=== PATIENT | female | born 1985 | race African-American/Black ===

== ENCOUNTER 2024-11-06 13:54 | Emergency (ER) | payer MEDICAID, OTHER ==
[~2024-11-06] VITALS: Ht 149.9 cm; Wt 57.6 kg
--- NOTE | 2024-11-06 14:19 | ED.PDOC ---
HPI (NEURO) HPI Comments 39 y.o female with PMHx of seizures, lupus and anemia, presents to the ED for an evaluation of seizure activity associated with dizziness x today. Patient reports sister at home witnessed 2 tonic clonic seizures lasting 2-3 minutes with another one en route to the ED. Patient reports being placed on Keppra 500mg BID 7 months ago but is unable to keep medication down due to vomiting. Patient was seen at this ED one week ago for seizures and discharged. Patient also mentions developing a rash across her chest due to lupus flare up that is spreading and presents with pain. Patient denies any SOB, diarrhea, fever, chills. She denies any substance, alcohol or tobacco use. Time Seen by MD: 14:05 Reviewed Notes: Nurses Notes, Medications, Allergies Information Source: Patient Mode of Arrival: Ambulatory Timing: Weeks (1) Duration: Since onset Seizure Location: Generalized Onset: At rest Circumstances: Spontaneous Symptoms: None Before: Normal During: LOC After: Normal Mentation History of: Seizure Disorder Modifying factors: Nothing Associated Signs and Symptoms: Other Past Medical History PAST MEDICAL HISTORY: Anemia, Seizures Past Medical History (Other): lupus Constitutional: denies: chills, diaphoresis, fatigue, fever, malaise, sweats, weakness, others EENTM: denies: blurred vision, double vision, ear bleeding, ear discharge, ear drainage, ear pain, ear ringing, eye pain, eye redness, hearing loss, mouth pain , mouth swelling, nasal discharge, nose bleeding, nose congestion, nose pain, photophobia, tearing, throat pain, throat swelling, voice changes, others Respiratory: denies: cough, hemoptysis, orthopnea, SOB at rest, shortness of breath, SOB with excertion, stridor, wheezing, others Cardiovascular: denies: chest pain, dizzy spells, diaphoresis, Dyspnea on exertion, edema, irregular heart beat, left arm pain, lightheadedness, palpitations, PND, syncope, others Gastrointestinal: denies: abdomen distended, abdominal pain, blood streaked bowels, constipated, diarrhea, dysphagia, difficulty swallowing, hematemesis, melena, nausea, poor appetite, poor fluid intake, rectal bleeding, rectal pain, vomiting, others Genitourinary: denies: abnormal vagina bleeding, burning, dyspareunia, dysuria, flank pain, frequency, hematuria, incontinence, pain, , vagina discharge, urgency, others Neurological: reports: dizziness, seizure (3); denies: fainting, headache, left sided numbness, left sided weakness, numbness, paresthesia, pre-existing deficit, right sided numbness, right sided weakness, speech problems, tingling, tremors, weakness, others Musculoskeletal: denies: back pain, gout, joint pain, joint swelling, muscle pain, muscle stiffness, neck pain, others Integumetry: reports: rash; denies: bruises, change in color, change in hair/nails, dryness, laceration, lesions, lumps, wounds, others Allergic/Immunocompromised: denies: Difficulty Healing, Frequent Infections, Hives, Itching, others Hematologic/Lymphatic: denies: anemia, blood clots, easy bleeding, easy bruising, swollen glands, others Endocrine: denies: excessive hunger, excessive sweating, excessive thirst, excessive urination, flushing, intolerance to cold, intolerance to heat, unexpl ained weight gain, unexplained weight loss, others Psychiatric: denies: anxiety, bipolar disorder, depression, hopeless, panic disorder, schizophrenia, sleepless, suicidal, others All Other Systems: Reviewed and Negative Physical Exam General Appearance: Moderate Distress HEENT: Normal ENT Inspection, Pharynx Normal, TMs Normal Neck: Full Range of Motion, Non-Tender, Normal, Normal Inspection Respiratory: Chest Non-Tender, Lungs Clear, No Accessory Muscle Use, No Respiratory Distress, Normal Breath Sounds Cardiovascular: No Edema, No JVD, No Murmur, No Gallop, Normal Peripheral Pulses, Regular Rate/Rhythm Breast Exam: Deferred Gastrointestinal: No Organomegaly, Non Tender, No Pulsatile Mass, Normal Bowel Sounds, Soft Genitalia: Deferred Pelvic: Deferred Rectal: Deferred Extremities: No calf tenderness, Normal capillary refill, No pedal edema Musculoskeletal : Apperance: Normal Neurologic: Alert, lance crewmember II-XII nml as Tested, No Motor Deficits, Normal Affect, Normal Mood, No Sensory Deficits Cerebellar Function: Normal Reflexes: Normal Skin: Dry, Normal Color, Warm Lymphatic: No Adenopathy Was a procedure done? Was a procedure done?: No Differential Diagnosis (SZ) Seizure: Psychogenic Seizure, Closed Head Injury, CVA/TIA, Hyponatremia, Syncope, Encephalopathy, Epilepsy-Break Through, Epilepsy-Status General Weakness: Dehydration, Dysrhythmia, Electrolyte imbalance, Labyrinthit is, Meniere's disease, Myasthenia gravis, TIA, VBI, Vertigo: central, Vertigo: peripheral, Vestibular neuronitis Headache: Cluster, Migraine, Subarachnoid Hemorrhage X-Ray, Labs, Meds, VS Vital Signs Date Time Temp Pulse Resp B/P (MAP) Pulse Ox O2 Delivery O2 Flow Rate FiO2 11/06/24 17:28 75 18 110/89 11/06/24 17:24 98.7 86 20 122/77 (92) 99 98.7 11/06/24 17:24 86 20 99 Room Air 11/06/24 16:35 98.7 98 16 147/98 (114) 100 98.7 11/06/24 14:58 90 18 140/85 11/06/24 14:28 90 18 140/85 11/06/24 14:20 99 18 98 Room Air* 0 21 11/06/24 14:00 98.6 99 16 143/97 (112) 98 98.6 11/06/24 14:00 98.6 99 16 143/97 (112) 98 98.6 Lab Test 11/06/24 15:57 Range/Units White Blood Count 8.4 4.4-10.8 10^3/uL Red Blood Count 4.61 4.0-5.20 10^6/uL Hemoglobin 9.3 L 12.2-16.2 g/dL Hematocrit 31.4 L 36.0-46.0 % Mean Corpuscular Volume 68.1 L 80.0-100.0 fL Mean Corpuscular Hemoglobin 20.2 L 28.0-32.0 pg Mean Corpuscular Hemoglobin Concent 29.7 L 32.0-36.0 g/dL Red Cell Distribution Width 20.4 H 11.8-14.3 % Platelet Count 217 140-450 10^3/uL Mean Platelet Volume 8.7 6.9-10.8 fL Neutrophils (%) (Auto) 75.0 37.0-80.0 % Lymphocytes (%) (Auto) 18.0 10.0-50.0 % Monocytes (%) (Auto) 6.1 0.0-12.0 % Eosinophils (%) (Auto) 0.3 0.0-7.0 % Basophils (%) (Auto) 0.6 0.0-2.0 % Neutrophils # (Auto) 6.3 1.6-8.6 10 ^3/uL Lymphocytes # (Auto) 1.5 0.4-5.4 10 ^3/uL Monocytes # (Auto) 0.5 0-1.3 10 ^3/uL Eosinophils # (Auto) 0 0-0.8 10 ^3/uL Basophils # (Auto) 0.1 0-0.2 10 ^3/uL Nucleated Red Blood Cells 0.1 % Platelet Estimate Adequate Hypochromasia (manual) Marked Anisocytosis (manual) Slight Microcytosis Marked Sodium Level 141 136-145 mmol/L Potassium Level 3.9 3.5-5.1 mmol/L Chloride Level 107 98-107 mmol/L Carbon Dioxide Level 25 20-31 mmol/L Anion Gap 9 5-15 Blood Urea Nitrogen 11 9-23 mg/dL Creatinine 0.79 0.550-1.02 mg/dL Glomerular Filtration Rate Calc 98 >90 mL/min BUN/Creatinine Ratio 13.9 10.0-20.0 Serum Glucose 208 H 74-106 mg/dL Calcium Level 9.6 8.7-10.4 mg/dL Current Medications Medications (Trade) Dose Ordered Sig/Lindsey Route Start Time Stop Time Status Last Admin Sodium Chloride 500 ml @ 500 mls/hr Q1H ONCE IV 11/06/24 14:30 11/06/24 15:29 DC 11/06/24 14:28 Levetiracetam 100 ml @ 400 mls/hr ONCE ONCE IV 11/06/24 14:30 11/06/24 14:44 DC 11/06/24 14:29 Ondansetron HCl (Zofran) 4 mg ONCE ONCE IV 11/06/24 14:30 11/06/24 14:31 DC 11/06/24 14:28 Morphine Sulfate 4 mg ONCE ONCE IV 11/06/24 14:30 11/06/24 14:31 DC 11/06/24 14:28 Morphine Sulfate 4 mg ONCE ONCE IV 11/06/24 17:30 11/06/24 17:31 DC 11/06/24 17:28 IV Hep-Lock was established The patient was given Keppra 1 g IV piggyback The patient was given normal saline at 500 cc bolus. The patient was having pain so was given morphine 4 mg IV push and Zofran 4 mg IV push for the nausea The patient was still having pain so was given another dose of morphine 4 mg IV push The patient is anemic with a hemoglobin of 9.3 and hematocrit of 31.4 The chemistry panel is within normal limits The patient was to be admitted to the hospitalist but she has now signed out AMA Time of 1ST Reevaluation: 14:14 Reevaluation 1ST: Unchanged Patient Education/Counseling: Diagnosis, Treatment, Prognosis Family Education/Counseling: No Family Present Departure 1 Departure Time of Disposition: 17:52 Impression: Primary Impression: Vomiting Qualified Codes: R11.14 - Bilious vomiting Additional Impression: Seizure-like activity Disposition: LEFT AGAINST MEDICAL ADVICE Condition: Fair Critical Care Note Critical Care Time?: Yes (45 min-critical care time only) Stability Stability form required: No Heart Score Heart Score: Heart Score Response (Comments) Value History N/A 0 EKG N/A 0 Age N/A 0 Risk Factors N/A 0 Troponin N/A 0 Total 0 I personally scribed for SANTHOSH CRUZ MD ([email or web address]) on 11/06/24 at 14:19. Electronically submitted by Fay Caceres ([facility]). SANTHOSH CRUZ MD Nov 06, 2024 14:19
[2024-11-06 14:20] VITALS: PULSE 99; RESP 18; O2SAT 98
[2024-11-06] MEDS: SODIUM CHLORIDE 0.9% 500 ML IV ONE (14:28)
[2024-11-06] MEDS: MORPHINE SULFATE 4 MG/ML SYR/VIAL IV ONE ×2 (14:28→17:28)
[2024-11-06] MEDS: ONDANSETRON HCL 4 MG/2 ML VIAL IV ONE (14:28)
[2024-11-06] MEDS: levETIRAcetam 1000 mg/100ml 100 ML IV ONE (14:29)
[2024-11-06 16:07] LABS: Hemoglobin 9.3 g/dL (12.2-16.2); Mean Corpuscular Volume 68.1 fL (80.0-100.0); Nucleated Red Blood Cells % 0.1 %
[2024-11-06 16:08] LABS: Hematocrit 31.4 % (36.0-46.0); Mean Corpuscular Hemoglobin 20.2 pg (28.0-32.0)
[2024-11-06 16:16] LABS: Potassium 3.9 mmol/L (3.5-5.1); Sodium 141 mmol/L (136-145)
[2024-11-06 16:17] LABS: Anion Gap 9 (5-15); Calcium 9.6 mg/dL (8.7-10.4); Carbon Dioxide 25 mmol/L (20-31); Chloride 107 mmol/L (98-107)
[2024-11-06 16:22] LABS: BUN/Creatinine Ratio 13.9 (10.0-20.0); Blood Urea Nitrogen 11 mg/dL (9-23)
[2024-11-06 16:25] LABS: Glucose 208 mg/dL (74-106)
[2024-11-06 16:32] LABS: Anisocytosis Slight
[2024-11-06 17:24] VITALS: TEMP 98.7; O2SAT 99
[2024-11-06 17:28] VITALS: BP 110/89; PULSE 75; RESP 18
== END 2024-11-06 17:46 | disposition left against medical advice (07) ==
LOC: ER 13:54
DX: G40.909 Epilepsy, unspecified, not intractable, without status epilepticus (principal); R11.10 Vomiting, unspecified; Z86.2 Personal history of diseases of the blood and blood-forming organs and certain disorders involving the immune mechanism
CPT/HCPCS: 36415; 80048; 85025; 96361; 96374; 96375; 96376; 99284; J1953; J2270; J2405; J7040; 99291